=== PATIENT | female | born 1970 | race Two or more races ===

== ENCOUNTER 2020-11-27 09:40 | Emergency (ER) | payer OTHER ==
[~2020-11-27] VITALS: Ht 154.9 cm; Wt 50.1 kg
--- NOTE | 2020-11-27 09:59 | NUR ---
PATIENT WALKED BACK FROM TRIAGE WITH CHIEF C/O CHEST PAIN AND SOB X2 WEEKS. PATIENT ALSO REPORTS DIZZINESS, PATIENT DENIES FEVER OR COUGH. PATIENT REPORTS SYMPTOMS STARTED AFTER RECEIVING HER SECOND PZIER COVID VACCINE. PATIENT ALSO REPORTS RECENTLY HAVING CONJUNCTIVITIS. EFREN, MARSHA, CALL LIGHT WITHIN REACH.
--- NOTE | 2020-11-27 10:07 | NUR ---
ERMD AT BEDSIDE FOR EVALUATION.
[2020-11-27] MEDS ORDERED: ASPIRIN 81 MG TABLET CHEW PO ONE (10:30)
[2020-11-27] MEDS ORDERED: NAPROXEN 500 MG TABLET PO ONE (10:30)
--- NOTE | 2020-11-27 10:31 | NUR ---
PATIENT TO IMAGING.
[2020-11-27] MEDS ORDERED: ASPIRIN 81 MG TABLET CHEW ONE (10:55)
[2020-11-27] MEDS ORDERED: NAPROXEN 500 MG TABLET ONE (10:55)
[2020-11-27 11:09] LABS: BASOPHILS % (AUTO) 0 % (0-1); EOSINOPHILS % (AUTO) 5 % (1-7); LYMPHOCYTES % (AUTO) 35 % (22-44); MEAN CORPUSCULAR HEMOGLOBIN 30.5 pg (27.0-34.8); MEAN CORPUSCULAR HGB CONC 33.5 g/dL (32.4-35.8); MEAN PLATELET VOLUME 7.6 fL (7.4-10.4); MONOCYTES % (AUTO) 7 % (2-9); NEUTROPHILS % (AUTO) 53 % (42-75); PLATELET COUNT 296 x10^3/uL (130-400); RED BLOOD COUNT 4.74 x10^6/uL (3.82-5.3); RED CELL DISTRIBUTION WIDTH 12.9 % (9.6-15.2)
--- NOTE | 2020-11-27 11:11 | NUR ---
PATIENT MEDICATED PER eMAR, VSS, AMBULATED TO BATHROOM WITH STEADY GAIT.
[2020-11-27 11:13] LABS: MD NO
[2020-11-27 11:18] LABS: ANION GAP 5 mmol/L (5-15); CALCIUM 8.7 mg/dL (8.5-10.1); CHLORIDE 110 mmol/L (98-107)
[2020-11-27 11:26] LABS: ALANINE AMINOTRANSFERASE 23 U/L (12-78); ALKALINE PHOSPHATASE 71 U/L (45-117); BILIRUBIN,TOTAL 0.8 mg/dL (0.2-1.0); TOTAL PROTEIN 7.3 g/dL (6.4-8.2); TROPONIN I < 0.015 ng/mL (0.000-0.045)
--- NOTE | 2020-11-27 12:13 | NUR ---
ERPA AT BEDSIDE TO DISCUSS POC.
[2020-11-27 12:20] VITALS: BP 135/82
--- NOTE | 2020-11-27 12:22 | NUR ---
PATIENT RESTING IN EFREN DENNIS VSS. WAITING FOR DISCHARGE PAPERWORK.
--- NOTE | 2020-11-27 13:20 | NUR ---
Patient given discharge instructions and prescriptions and they have confirmed that they understand the instructions, all questions answered. Patient stable and ambulatory with steady gait from ED to private vehicle.
== END 2020-11-27 13:21 | disposition home or self-care (01) ==
LOC: ED 13:15
DX: R07.89 Other chest pain (principal); R53.83 Other fatigue; Z20.822 Contact with and (suspected) exposure to COVID-19; Z87.891 Personal history of nicotine dependence
CPT/HCPCS: 36415; 71046; 80053; 84484; 85025; 93005; 99285; U0003